=== PATIENT | female | born 1970 | race African-American/Black ===

== ENCOUNTER 2019-05-09 20:15 | Emergency (ER) | payer OTHER ==
[~2019-05-09] VITALS: Ht 165.1 cm; Wt 70.8 kg
[2019-05-09 20:21] VITALS: Ht 165.1 cm; Wt 70.8 kg
[2019-05-09 21:32] VITALS: BP 145/77
== END 2019-05-09 21:33 | disposition home or self-care (01) ==
LOC: ED 20:15
DX: S61.216A Laceration without foreign body of right little finger without damage to nail, initial encounter (principal); I10 Essential (primary) hypertension; W26.8XXA Contact with other sharp object(s), not elsewhere classified, initial encounter; Y93.89 Activity, other specified; Y92.89 Other specified places as the place of occurrence of the external cause; Y99.8 Other external cause status
CPT/HCPCS: J2001